=== PATIENT | male | born 1970 | race Caucasian/White ===

== ENCOUNTER → 2018-09-28 10:27 | Outpatient (CLI) | payer OTHER, SELFPAY ==
[2018-09-28 12:56] LABS: Erythrocyte Sedimentation Rate 7 mm/hr (0-20)
[2018-09-28 12:59] LABS: Absolute Lymphocyte Count 1.89 X10^3/ul (0.83-4.51); Absolute Neutrophil Count 2.5 X10^3/uL (2.0-7.7); Basophil# 0.01 X10^3/uL; Basophil% 0.2 % (0-1); Eosinophil# 0.11 X10^3/uL; Eosinophils% 2.2 % (0-5); Hematocrit 42.7 % (40-54); Lymphocyte # 1.89 X10^3/ul (4.0); Lymphocyte % 37.4 % (19-41); Mean Corp Hgb Conc 35.1 g/gl (32-36); Mean Corpuscular Hgb 30.2 pg (27.0-32.0); Mean Corpuscular Volume 86.1 fL (80-94); Mean Platelet Vol. 10.3 fl (6.2-12.0); Monocyte# 0.52 X10^3/uL; Monocyte% 10.3 % (0-10); Neutrophil # 2.51 X10^3/uL (2.7-7.7); Neutrophil % 49.7 % (47-70); Platelet Count 186 K/mm3 (150-450); RBC Distribution Width CV 12.5 % (11.6-14.6); Red Blood Count 4.96 M/mm3 (4.6-6.2); White Blood Count 5.1 K/mm3 (4.4-11.0)
[2018-09-28 13:00] LABS: POSITIVE COUNT NO; POSITIVE DIFFERENTIAL NO; POSITIVE MORPHOLOGY NO
[2018-09-28 13:12] LABS: Vitamin B12 693 pg/mL (211-911)
[2018-09-28 14:12] LABS: ALB/GLOB Ratio 1.1 RATIO (0.9-2.4); AST(SGOT) 19 U/L (15-37); Alanine Aminotransfer ALT/SGPT 41 U/L (16-61); Albumin, Serum 3.9 g/dL (3.2-5.0); Alkaline Phosphatase 97 U/L (45-117); Anion Gap 13 (5-15); BUN 12 mg/dL (7-18); BUN/Creat Ratio 12.9 RATIO (10-20); CRP < 2.90 mg/L (0.0-3.0); Calcium,Total 8.5 mg/dL (8.5-10.1); Chloride 106 mmol/L (98-107); Creatinine, Serum 0.93 mg/dL (0.70-1.30); EST Glomerular Filtration Rate 92 mL/min (>60); Est Glom Filt Rate - Afr Amer 111 mL/min (>60); Ferritin 47 ng/mL (26-388); Globulin 3.6 g/dL (2.2-4.2); Glucose 108 mg/dL (74-106); Potassium 3.6 mmol/L (3.5-5.1); Protein, Total 7.5 g/dL (6.4-8.2); Sodium Level 141 mmol/L (136-145)
[2018-09-29 20:07] LABS: Endomysial Antibody IgA Negative (Negative)
[2018-09-30 11:57] LABS: Immunoglobulin A 223 mg/dL (90-386); t-Transglutaminase IgA <2 U/mL (0-3)
[2018-10-02 09:09] LABS: Beef <0.10 kU/L (Class 0); Chocolate <0.10 kU/L (Class 0); Corn <0.10 kU/L (Class 0); Egg, Whole <0.10 kU/L (Class 0); Milk (Cow) <0.10 kU/L (Class 0); Peanut <0.10 kU/L (Class 0); Pork <0.10 kU/L (Class 0); Soybean <0.10 kU/L (Class 0); Wheat <0.10 kU/L (Class 0)
[2018-10-02 11:00] LABS: ANTINUCLEAR ANTIBODIES DIRECT Negative (Negative)
== END ==
LOC: MFPLAB 10:29 → LABSPEC 10:31
PROVIDERS: Visit Provider Family Medicine
DX: R19.7 Diarrhea, unspecified (principal); K62.5 Hemorrhage of anus and rectum; Z78.9 Other specified health status
CPT/HCPCS: 36415; 80053; 82607; 82728; 82746; 82784; 83516; 85025; 85652; 86003; 86005; 86038; 86140; 86255

== ENCOUNTER → 2018-10-01 16:44 | Outpatient (CLI) | payer OTHER, SELFPAY ==
[2018-10-01 13:42] VITALS: BMI 24.3
== END ==
PROVIDERS: Family Provider Family Medicine; PCP Family Medicine; Referring Provider Family Medicine; Visit Provider Family Medicine
DX: R19.7 Diarrhea, unspecified (principal); K62.5 Hemorrhage of anus and rectum; Z78.9 Other specified health status
CPT/HCPCS: 87177; 87209; 87506

== ENCOUNTER 2018-10-23 07:28 | Day surgery (SDC) | payer OTHER, SELFPAY ==
[2018-10-01 13:42] VITALS: BMI 24.3
[2018-10-23] VITALS (7 sets, daily range): BP systolic 107–123; BP diastolic 73–83; PULSE 55–77; RESP 16–18; TEMP 36.1–36.5; O2SAT 96–99; BMI 24.0
--- NOTE | 2018-10-23 08:51 | OP.ENDO_ITS ---
Patient Name: Trace Lane Procedure Date: 10/23/2018 8:16 AM Date of : 1970 Age: 48 Procedure: Colonoscopy Indications: Hematochezia Providers: Trace Castro MD Medicines: Monitored Anesthesia Care Patient Profile: This is a 48 year old male. Refer to note in patient chart for documentation of history and physical. Last Colonoscopy: none. The patient's first colonoscopy is today. Complications: No immediate complications. Estimated blood loss: None. Procedure: Pre-Anesthesia Assessment: - Prior to the procedure, a History and Physical was performed, and patient medications and allergies were reviewed. The patient's tolerance of previous anesthesia was also reviewed. The risks and benefits of the procedure and the sedation options and risks were discussed with the patient. All questions were answered, and informed consent was obtained. Prior Anticoagulants: The patient has taken no previous anticoagulant or antiplatelet agents. After reviewing the risks and benefits, the patient was deemed in satisfactory condition to undergo the procedure. After I obtained informed consent, the scope was passed under direct vision. Throughout the procedure, the patient's blood pressure, pulse, and oxygen saturations were monitored continuously. The Colonoscope was introduced through the anus and advanced to the cecum, identified by appendiceal orifice and ileocecal valve. The colonoscopy was performed without difficulty. The patient tolerated the procedure well. The quality of the bowel preparation was good. Scope In: 8:37:02 AM Scope Withdrawal Time 0 hours 6 minutes 2 seconds Scope Out: 8:47:15 AM Total Procedure Duration Time 0 hours 10 minutes 13 seconds Findings: The entire examined colon appeared normal on direct and retroflexion views. Impression: - The entire examined colon is normal on direct and retroflexion views. - No specimens collected. Recommendation: - Discharge patient to home. - Resume previous diet. - Continue present medications. - Repeat colonoscopy in 10 years for screening purposes. Procedure Code(s): --- Professional --- 72797, Colonoscopy, flexible; diagnostic, including collection of specimen(s) by brushing or washing, when performed (separate procedure) Diagnosis Code(s): --- Professional --- K92.1, Melena (includes Hematochezia) CPT copyright 2017 [employer]. All rights reserved. The codes documented in this report are preliminary and upon saxophone player review may be revised to meet current compliance requirements. Trace Castro MD 10/23/2018 8:50:37 AM This report has been signed electronically. Number of Addenda: 0 Note Initiated On: 10/23/2018 8:16 AM
== END 2018-10-23 09:32 | disposition home or self-care (01) ==
LOC: EN 07:29 → AC 07:32
PROVIDERS: Family Provider Family Medicine; PCP Family Medicine; Referring Provider Surgery; Visit Provider Surgery
PROC: 0DJD8ZZ Inspection of Lower Intestinal Tract, Via Natural or Artificial Opening Endoscopic (ICD-10-PCS; CPT 45378; principal; 2018-10-23 08:25)
DX: K62.5 Hemorrhage of anus and rectum (principal); K92.1 Melena; K64.9 Unspecified hemorrhoids; R19.7 Diarrhea, unspecified; R10.9 Unspecified abdominal pain; R06.02 Shortness of breath; K21.9 Gastro-esophageal reflux disease without esophagitis; F32.9 Major depressive disorder, single episode, unspecified; F41.9 Anxiety disorder, unspecified; Z79.899 Other long term (current) drug therapy; M06.9 Rheumatoid arthritis, unspecified
CPT/HCPCS: 45378; J7120

== ENCOUNTER → 2018-11-23 | Outpatient (CLI) | payer OTHER, SELFPAY ==
[2018-10-23 07:44] VITALS: BMI 24.0
--- NOTE | 2018-11-23 10:19 | RAD_ITS ---
STUDY: X-RAY - RIGHT KNEE REASON FOR EXAM: Male, 48 years old. Pain. TECHNIQUE: 4. view(s) of the knee. COMPARISON: None. FINDINGS: Normal visualized distal femur. Normal visualized proximal tibia and fibula. Normal proximal tibiofibular articulation. Normal medial femorotibial compartment. Normal lateral femorotibial compartment. Normal patellofemoral articulation. The soft tissue structures are unremarkable. RAD/Knee 4 or More Views IMPRESSION: Normal x-ray examination of the knee. Recommendation: If internal derangement is clinically suspected, recommend evaluation with MRI. Electronically Signed: Armen King MD at 14:09 EDT , Service support ,
--- NOTE | 2018-11-23 10:19 | RAD_ITS ---
STUDY: X-RAY - RIGHT SHOULDER REASON FOR EXAM: Male, 48 years old. Shoulder pain TECHNIQUE: 3 view(s) of the shoulder. COMPARISON: None. FINDINGS: Normal glenohumeral articulation. Normal acromioclavicular joint. Normal acromion. Normal humeral head and visualized proximal humerus. The soft tissue structures are unremarkable. Normal visualized pulmonary apex. RAD/Shoulder min 2 Views IMPRESSION: Normal x-ray examination of the shoulder. Electronically Signed: Cedric Reed, at 20:28 EDT Tel , Service support ,
== END | disposition home or self-care (01) ==
PROVIDERS: Family Provider Family Medicine; PCP Family Medicine; Referring Provider Family Medicine; Visit Provider Family Medicine
DX: M25.811 Other specified joint disorders, right shoulder (principal); M76.31 Iliotibial band syndrome, right leg
CPT/HCPCS: 73030; 73564

== ENCOUNTER 2018-12-07 10:58 | Outpatient (RCR) | payer OTHER, SELFPAY ==
[2018-10-23 07:44] VITALS: BMI 24.0
--- NOTE | 2018-12-15 13:47 | HP.PTEVAL_ITS ---
Patient's Visit Information RICHARD MATOS is a 48 year old M referred to Physical Therapy by Jc Koch MD with a diagnosis of R shoulder pain. Date of Evaluation: 12/07/18 Physical Therapist: Jef Copeland DPT - Visit Plan Frequency: 2x /Week Duration: 4 Weeks Plan: Start with RTC stability exercises, quad stretngthening. Add in inferior glides of R GH joint as needed. - Subjective Findings: Pt. is here today for his initial evaluation with diagnosis of R shoulder pain. Pt. reports having pain on and off for years, but has started to become worse. Pt. reports having increased difficulty throwing with his son. Pt. reports no mechanism of injury, but has been progressively getting worse. He also complains of L knee pain at times as well. Pt. did report some N/T in R hand at times, but no currently. pt. reports no issues with sleeping. Pt. reports some knee pain at times, but only if running or descending steps. Pt. is hopeful to reduce his symptoms in order to get back to all recreational and work activities without limitations. - Pain R anterior shoulder Pain Intensity (Out of 10): 2 Pain Intensity Range: 1, 6 L medial knee Pain Intensity (Out of 10): 0 Pain Intensity Range: 0, 4 - Objective POSTURE: Pt has rounded shoulders, and slight general flexed posture. Pt. had normal shoulder heights and normal iliac crest heights. Normal knee positoning. PALPATION: Pt. has tenderness along bicipital groove of R shoulder and anterior aspect of R shoulder. Pt. has no pain in cervical spine. Pt. has tenderness at patellar tendon and L medial joint line of knee. NEURO: normal throughout BLEs adn BUEs. ROM: R shoulder- flexion 175deg mild increase NW at end range, abd 170deg mild increase NW at end range, ext 550deg NE, functional ER C6, functional IR L1. L knee- 0-0-132deg. No pain with testing. MMT: R shoulder- flexion 4+/5 increase NW, ext 5/5 NE, ER 5-/5 NE, IR 5-/5, abd 4+/5 NE. - Special Tests C/S Radiculapathy - Right Upper limb tension test: Negative C/S Radiculapathy - Right Spurlings: Negative C/S Radiculapathy - Right Cervical distraction: Negative C/S Radiculapathy - Right Relief test: Negative L Knee Jacque - Meniscus: Negative L Knee Disco Test - Meniscus: Negative L Knee Anterior Drawer - ACL: Negative L Knee Posterior Drawer - PCL: Negative L Knee Valgus - MCL: Negative L Knee Varus - LCL: Negative L Knee Patellar Grind - PFS: Positive R Shoulder Supine Impingement Test - RC Tear: Negative R Shoulder Drop Sign - IS Test: Negative R Shoulder Empty Can - SS: Negative R Shoulder Belly Press - SupScap: Negative R Shoulder Speeds Test - Labrum/Biceps: Positive - Goals Goal 1:: Pt. to be I with HEP. Goal Time Frame: 4-6 Weeks Goal 2:: Pt. to have full R shoulder ROM without increase in symptoms. Goal Time Frame: 4-6 Weeks Goal 3:: Pt. to have 5/5 strength throughout RTC and R shoulder. Goal Time Frame: 4-6 Weeks Goal 4:: Pt. to throw with son without increase in symptoms. Goal Time Frame: 4-6 Weeks Goal 5:: Pt. to have decreased L knee pain with all walking and recreational activities to 0-1/10 pain. Goal Time Frame: 4-6 Weeks - Rehabilitation Potential Physical Therapy Diagnosis: Pt. has signs and symptoms consistent with R shoulder apin and L knee pain. Pt. appears to have R RTC tendonosis and L patellar tendonitis. Pt. would benefit from PT to increase RTC s tability/strength and quad length in order to stabilize at both joints. Rehabilitation Potential: Excellent - Anticipated Interventions Patient/Client Instruction: Educate patient on: Condition, Plan of Care, Risk Factors, Benefits of Fitness Program For the Purpose of:: To foster healthy habits, To improve decision making, To facilitate caregiver knowledge, To improve self management, To prevent re-injury Therapeutic Exercise to Include: Strength training, Power training, Endurance training, Postural training, Flexibilty training, Passive ROM, Active ROM, Weston Exercises, Scapular Strength/Stabilization For the Purpose of:: To decrease pain, To decrease swelling/inflammation, To increase ROM, To improve nutrient delivery to tissue, To increase oxygenation perfusion, To improve muscle performance and motor function, To decrease soft tissue restriction, To increase flexibility/ROM Manual Therapy Techniques to Include: Mobilization, Passive ROM For the Purpose of:: To decrease pain, To decrease swelling/inflammation, To increase ROM Thank you for the opportunity to evaluate your patient. For Medicare and Medicare HMO plans, please review the plan of care and approve it. It will need to be FAXED BACK to us at [phone] for Medicare purposes. For Medicare only, by signing this I certify the plan of care. Please let me know if there are questions or concerns regarding this plan of care. Physician Signature: Date:
--- NOTE | 2019-03-29 13:56 | HP.PT.NRP ---
HP - Discharge Summary (1) - Patient Information RICHARD MATOS was seen in my office for initial evaluation on 12/07/18. The following Plan of Care was established for this patient: Initial Frequency: 2x /Week Initial Duration: 4 Weeks - Anticipated Interventions Patient/Client Instruction: Educate patient on: Condition, Plan of Care, Risk Factors, Benefits of Fitness Program For the Purpose of:: To foster healthy habits, To improve decision making, To facilitate caregiver knowledge, To improve self management, To prevent re-injury Therapeutic Exercise to Include: Strength training, Power training, Endurance training, Postural training, Flexibilty training, Passive ROM, Active ROM, Weston Exercises, Scapular Strength/Stabilization For the Purpose of:: To decrease pain, To decrease swelling/inflammation, To increase ROM, To improve nutrient delivery to tissue, To increase oxygenation perfusion, To improve muscle performance and motor function, To decrease soft tissue restriction, To increase flexibility/ROM Manual Therapy Techniques to Include: Mobilization, Passive ROM For the Purpose of:: To decrease pain, To decrease swelling/inflammation, To increase ROM This patient was last seen in our office 12/07/18. Pertinent comments regarding their Physical therapy will appear below: Pt. was seen for his initial evaluation for his shoulder pain. Pt. did not attend pancho further appointments. He has not been seen in several months and will be DC from PT at this point in time. At this point I will be discontinuing this patient from physical therapy. I would be happy to see this patient again in the future if found appropriate by the physician. Thank you! Jef Copeland DPT
== END 2018-12-07 19:00 | disposition home or self-care (01) ==
LOC: PT 10:58
PROVIDERS: Family Provider Family Medicine; PCP Family Medicine; Referring Provider Family Medicine; Visit Provider Family Medicine
DX: M25.511 Pain in right shoulder (principal)
CPT/HCPCS: 97161